=== PATIENT | female | born 1960 | race Two or more races ===

== ENCOUNTER 2024-10-24 13:08 | Outpatient (RCR) | payer BC, MEDICAID, SELFPAY ==
--- NOTE | 2024-10-24 14:39 | CTCCONSULT_ITS ---
Well so glad I have to because she just cannot already okay [facility] [address] [place], [place] [address] Consultation Note Date: 10/24/2024 MR#: [id number] Name: GUILLERMO QUEVEDO : 1960 Dx: C50.412 Malignant neoplasm of upper-outer quadrant of left female breast Attending physician. T[facility] Referring physician. Jossue Baker MD Reason for consultation. Patient with left breast CA status post left modified radical mastectomy re ferred for adjuvant therapy at the cancer treatment center. History of Present Illness: Patient is a 64-year-old lady who felt that there was a inverted left nipple and palpable lump in left breast area of for several years around 12 o'clock position. The mass measured 2.8 x 2.0 x 2.7 cm on ultrasound 04/06/2024. Biopsy performed 06/26/2024 revealed in filtrating carcinoma ER 95% positive WI 5% positive Ki-67 25% HER2/robel negative. Due to the central location and the small breast along with the size of the tumor modified radical mastectomy was perfor med by Dr. Baker on 09/28/2024. Final path revealed 3.1 cm invasive ductal carcinoma with lobular fe atures tumor invading the nipple dermis without involvement of the epidermis or skin ulcerations alhaji ins negative. There is metastatic carcinoma involving 5/10 lymph nodes micrometastatic carcinoma in one of the positive lymph nodes with largest of the metastatic deposit 1.9 cm. Focal extranodal exte nsion identified. [id number]. Patient now referred for adjuvant therapy. Past Medical History: Diabetes mellitus high blood pressure Meds. Advil Allergies none Social History: Dutch-speaking 4 pregnancies 2 births Review of Systems: Denies headache has some pain at the surgery site Physical Exam: General: Adequate nourished appearing Dutch-speaking no acute distress HEENT: Atraumatic no cephalic extraocular is intact no oral lesion no cervical or supraclavicular kenia nopathy CV: Left chest wall healing well. Right breast without any masses axillary scar healing well. Mild edema left upper extremity ABD: Soft no organomegaly or tenderness EXT: No signs of clubbing or edema. Assessment: Patient with stage IIIa [id number] left breast CA status post modified radical mastectomy pe rformed by Dr. Baker 09/28/2024. Plan:1. PET for staging due to advanced stage breast cancer. 2. Port and MUGA to facilitate chemo. Dr. Bush to see patient soon. 3. Patient told the eventual need for radiation therapy following chemo due to the multiple (5 ) nod es involved with the right breast cancer of 10 removed. Chest wall and regional node sites including internal mammary will be treated at appropriate time. 4. Thank you very much for allowing us to evaluate and manage this patient. Cc: MD Brock Lopez PA [facility] Electronically signed by: Benjy Ponce MD, DABR 10/24/2024 2:37 PM
== END 2024-11-06 23:59 | disposition home or self-care (01) ==
LOC: SCTC 13:08
PROVIDERS: Referring Provider Physician Assistant; Visit Provider Radiology Therapeutic Radiology
DX: C50.812 Malignant neoplasm of overlapping sites of left female breast (principal); C77.3 Secondary and unspecified malignant neoplasm of axilla and upper limb lymph nodes; Z17.0 Estrogen receptor positive status [ER+]; Z17.21 Progesterone receptor positive status; Z17.32 Human epidermal growth factor receptor 2 negative status; Z90.12 Acquired absence of left breast and nipple
CPT/HCPCS: 99213; G0463

== ENCOUNTER 2024-12-28 10:19 | Outpatient (RCR) | payer BC, MEDICAID, SELFPAY ==
--- NOTE | 2024-12-10 12:56 | CTCCONSULT_ITS ---
Patient: GUILLERMO QUEVEDO : 1960 MR#: [id number] Page 2 of 2 CONSULTATION NOTE DATE OF CONSULTATION: 12/10/2024 NAME: GUILLERMO QUEVEDO ACCOUNT: [id number] : 1960 AGE: 64 REFERRING PHYSICIAN: Titus Bush MD PRIMARY PHYSICIAN: Titus Bush MD laborer cook house was used. All communication was done with the help of goat driver on the goat driver machine in the clinic room . REASON FOR VISIT: new patient ONCOLOGY HISTORY: DIAGNOSIS: Malignant neoplasm of upper-outer quadrant of left female breast [ICD10] C50.412 DATE OF DIAGNOSIS: 06/26/2024 STAGE/TNM: Stage III T2 N2a MX TREATMENT HISTORY: Care?Plan Start?Date Cycle Day Intent HISTORY OF PRESENT ILLNESS: 64-year-old female with a new diagnosis of breast cancer. Patient has hypertension diabetes. Patient denies any complaints. Patient is here to establish care. Patient already had her mastectomy done in September. OTHER MEDICAL HISTORY/CONDITIONS: Infiltrating ductal carcinoma left breast - dx 06/26/24 HTN Diabetes PC placement - mid November 2024 Left modified radical mastectomy with lymph node dissection - 09/28/24 x 2 - 1996; 2004 FAMILY HISTORY: Patient?denies?family?cancer?history. 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 Tobacco?Use:?Denies ETOH?Use:?Denies Drug?Note:?Denies Social?History?Note:?Lives?with?dtr [employer] HISTORY: Menarche?-?Age:?13 Menopause:?51 Hormone?Use:?Deneis :?4 Live?Births:?2 Age?1st?:?36 Gynecological?Note:?2?Abortions MEDICATIONS: 1. Advil - As directed 2. Januvia - 100 mg 1 tab Daily 3. Jardiance - 25 mg 1 tab Daily 4. lisinopril - 5 mg 1 tab Daily 5. metFORMIN - 1,000 mg 1 tab Twice a Day Medications Last Reconciled by Marguerite Barclay RN on 12/10/2024 ALLERGIES: No Known Allergies REVIEW OF SYSTEMS: A complete 14-point review of systems was performed and is negative except as noted in interval history. PHYSICAL EXAMINATION: VITAL SIGNS: Temperature?99.1, B/P?135/78, Height?60.5?inches, Oxygen?Saturation?96% Weight?152?lbs PAIN: 2 - Mild pain ECOG Performance Status: 0 - Asymptomatic and fully active GENERAL APPEARANCE: Appears well, in no apparent distress, appropriately interactive. HEENT: Normocephalic, no temporal wasting, normal conjunctiva, no scleral icterus, normal hearing, lips without lesions, neck normal range of motion. CARDIOVASCULAR: Not assessed. PULMONARY: Normal respiratory effort, no respiratory distress or use of accessory muscles, speaking in full sentences, no tachypnea. EXTREMITIES: No pedal edema or cyanosis. SKIN: Normal skin appearance. NEUROLOGIC: Alert and oriented x4. PSHYCHIATRIC: Appropriate affect, mood normal, behavior normal, intact thought and speech. LABORATORY DATA: I have personally reviewed and interpreted each of Ms. Quevedo?s relevant lab tests, abnormal findings are below: Date ASSESSMENT/PLAN: Stage III left breast cancer s/p mastectomy Patient have advanced breast cancer. Port catheter already placed Patient will need chemotherapy Consult regarding chemotherapy with dose dense AC and paclitaxel given high risk of recurrence Patient's echocardiogram is approved but pending scheduling Will start chemotherapy Discussed side effects of chemotherapy and including the risk of heart failure from Adriamycin Advised to do daily walk for 20 to 30 minutes to build her endurance Follow-up with the primary care for or proper control of blood pressure and heart rate CBC CMP and echo RETURN TO CLINIC: 3 weeks BILLING AND COMPLIANCE: I reviewed external records from providers outside my specialty as summarized above. I spent a total of 50 minutes on this patient?s care on the day of their visit excluding time spent related to any billed procedures. This time includes time spent with the patient as well as time spent documenting in the medical record, reviewing patients records and tests, obtaining history, placing orders, communicating with other healthcare professionals, counseling the patient, family or caregiver, and/or care coordination for the diagnoses above. Electronically Signed by: Titus Bush MD T: 12:54 PM CC: PCP: Titus Bush Referring: Titus Bush This document was completed utilizing speech recognition software. Grammatical errors, random word insertions, pronoun errors, and incomplete sentences are an occasional consequence of this system due to software limitations, ambient noise, and hardware issues. Any formal questions or concerns about the content, text or information contained within the body of this dictation should be directly addressed to the provider for clarification.
[2024-12-26 13:45] LABS: Basophils # (Auto) 0.1 Thou/mm3 (0.0-0.2); Basophils % (Auto) 1 % (0-2.5); Eosinophils # (Auto) 0.3 Thou/mm3 (0.0-0.5); Eosinophils % (Auto) 4 % (0-10); Hematocrit 41.8 % (36.0-46.0); Hemoglobin 14.8 g/dL (12.0-16.0); Immature Granulocytes % (Auto) 1 % (0-0); Immature Granulocytes Auto 0.04 Thou/mm3 (0.00-0.00); Lymphocytes # (Auto) 2.4 Thou/mm3 (1.0-4.8); Lymphocytes % (Auto) 29 % (10-50); Mean Corpuscular HGB Conc 35.4 g/dl (31.0-37.0); Mean Corpuscular Hemoglobin 30.1 pg (25.0-35.0); Mean Corpuscular Volume 85 fL (80-100); Monocytes # (Auto) 0.7 Thou/mm3 (0.0-0.8); Monocytes % (Auto) 8 % (0-12); Neutrophils # (Auto) 4.7 Thou/mm3 (1.8-7.7); Neutrophils % (Auto) 57 % (37-80); Nucleated Red Blood Cell % 0 /100 WBC (0); Platelet Count 291 Thou/mm3 (140-440); RDW Standard Deviation 40.4 fL (36.4-46.3); Red Blood Count 4.92 Miln/mm3 (4.00-5.20); White Blood Count 8.2 Thou/mm3 (3.6-11.0)
[2024-12-26 13:59] LABS: Alanine Aminotransferase 33 U/L (10-49); Albumin, Serum 4.3 gm/dL (3.4-4.8); Albumin/Globulin Ratio 1.3 (1.2-2.2); Alkaline Phosphatase 78 U/L (46-116); Anion Gap 9 (7-16); Aspartate Amino Transferase 24 U/L (0-34); BUN/Creatinine Ratio 16 Ratio (12-20); Bilirubin,Total 0.5 mg/dL (0.3-1.2); Blood Urea Nitrogen 11 mg/dL (9-23); Calcium 9.4 mg/dL (8.3-10.6); Calcium (Corrected) 9.4 mg/dL (8.5-10.1); Carbon Dioxide 27.3 mMol/L (20.0-31.0); Chloride 100 mMol/L (98-107); Creatinine (Component) 0.7 mg/dL (0.6-1.3); Globulin 3.2 gm/dL (2.3-3.5); Glucose 218 mg/dL (74-106); Osmolality,Calculated 278 (275-295); Potassium 4.2 mMol/L (3.4-5.1); Sodium 136 mMol/L (136-145); Total Protein 7.5 gm/dL (5.7-8.2); eGFR > 60 See Note
== END 2025-01-04 23:59 | disposition home or self-care (01) ==
LOC: SCTC 10:19
PROVIDERS: PCP Family Medicine; Referring Provider Internal Medicine Hematology & Oncology; Visit Provider Internal Medicine Hematology & Oncology
DX: Z51.11 Encounter for antineoplastic chemotherapy (principal); C50.812 Malignant neoplasm of overlapping sites of left female breast; Z17.0 Estrogen receptor positive status [ER+]; Z17.21 Progesterone receptor positive status; Z17.32 Human epidermal growth factor receptor 2 negative status; Z90.12 Acquired absence of left breast and nipple; I10 Essential (primary) hypertension; E11.9 Type 2 diabetes mellitus without complications
CPT/HCPCS: 36591; 80053; 85025; 96367; 96368; 96372; 96411; 96413; 99213; 99424; 99425; A4216; J1100; J1453; J1642; J2405; J2506; J7040; J7050; J9000; J9075; G0463

== ENCOUNTER → 2025-01-01 | Outpatient (CLI) | payer BC, MEDICARE, MEDICAID, SELFPAY ==
--- NOTE | 2025-01-01 09:30 | XR_ITS ---
Examination: CT chest with intravenous contrast CT abdomen with intravenous contrast 2-D coronal and sagittal reconstructions Time of exam: January 01, 2025 at 0930 hrs. Indications: Diagnosis malignant neoplasm upper outer quadrant left female breast September 2024, restaging CTDI: vol (mGy) : 6.57 DLP: (mGycm): 331 Technique: Multiple axial images of the chest, abdomen and pelvis with intravenous contrast, 3.0 mm slice thickness. Images obtained post intravenous injection Isovue 370 60 cc. 2-D sagittal and coronal reconstructions. Low dose protocols were performed. One or more of the following dose reduction techniques were used; automated exposure control, adjustment of the mA and/or KV according to patient size, use of iterative reconstruction technique. Findings: No thoracic aortic aneurysm dilatation No pulmonary artery emboli in the stone CTA study No paratracheal tracheobronchial or bronchopulmonary adenopathy 5 mm pulmonary nodule right upper lobe image 117 6 mm pulmonary nodule lingular segment image 190 No lobar pneumonia or pulmonary edema Left breast surgical clips skin thickening, left axillary surgical clips No pathologic axillary lymphadenopathy No visualized liver or splenic lesion No gallstones No pancreatic or adrenal mass Aorta normal size No hydronephrosis No abdominal lymphadenopathy Impression: Noncalcified pulmonary nodules as above, with this study as baseline recommend 6 month follow-up CT chest without contrast
== END | disposition home or self-care (01) ==
LOC: CCTX 08:45
PROVIDERS: PCP Family Medicine; Referring Provider Radiology Therapeutic Radiology; Visit Provider Radiology Therapeutic Radiology
DX: R91.8 Other nonspecific abnormal finding of lung field (principal); C50.412 Malignant neoplasm of upper-outer quadrant of left female breast
CPT/HCPCS: 71260; 74160; A4649; Q9967

== ENCOUNTER 2025-01-25 08:38 | Outpatient (RCR) | payer BC, MEDICARE, MEDICAID, SELFPAY ==
[2025-01-09 12:21] LABS: Basophils # (Auto) 0.2 Thou/mm3 (0.0-0.2); Basophils % (Auto) 2 % (0-2.5); Eosinophils # (Auto) 0.2 Thou/mm3 (0.0-0.5); Eosinophils % (Auto) 1 % (0-10); Hematocrit 40.7 % (36.0-46.0); Immature Granulocytes % (Auto) 11 % (0-0); Immature Granulocytes Auto 1.24 Thou/mm3 (0.00-0.00); Lymphocytes # (Auto) 2.5 Thou/mm3 (1.0-4.8); Lymphocytes % (Auto) 21 % (10-50); Mean Corpuscular HGB Conc 34.4 g/dl (31.0-37.0); Mean Corpuscular Hemoglobin 29.6 pg (25.0-35.0); Mean Corpuscular Volume 86 fL (80-100); Monocytes # (Auto) 1.2 Thou/mm3 (0.0-0.8); Monocytes % (Auto) 10 % (0-12); Neutrophils # (Auto) 6.4 Thou/mm3 (1.8-7.7); Neutrophils % (Auto) 55 % (37-80); Nucleated Red Blood Cell % 0 /100 WBC (0); Platelet Count 273 Thou/mm3 (140-440); RDW Standard Deviation 41.1 fL (36.4-46.3); Red Blood Count 4.73 Miln/mm3 (4.00-5.20); White Blood Count 11.6 Thou/mm3 (3.6-11.0)
[2025-01-09 13:10] LABS: Alanine Aminotransferase 23 U/L (10-49); Albumin, Serum 4.2 gm/dL (3.4-4.8); Albumin/Globulin Ratio 1.4 (1.2-2.2); Alkaline Phosphatase 99 U/L (46-116); Anion Gap 9 (7-16); Aspartate Amino Transferase 15 U/L (0-34); BUN/Creatinine Ratio 11 Ratio (12-20); Bilirubin,Total 0.2 mg/dL (0.3-1.2); Blood Urea Nitrogen 8 mg/dL (9-23); Calcium 9.5 mg/dL (8.3-10.6); Calcium (Corrected) 9.5 mg/dL (8.5-10.1); Carbon Dioxide 26.1 mMol/L (20.0-31.0); Chloride 101 mMol/L (98-107); Creatinine (Component) 0.7 mg/dL (0.6-1.3); Glucose 289 mg/dL (74-106); Osmolality,Calculated 281 (275-295); Sodium 136 mMol/L (136-145); Total Protein 7.2 gm/dL (5.7-8.2); eGFR > 60 See Note
[2025-01-23 08:43] LABS: Basophils # (Auto) 0.1 Thou/mm3 (0.0-0.2); Basophils % (Auto) 1 % (0-2.5); Eosinophils # (Auto) 0.1 Thou/mm3 (0.0-0.5); Eosinophils % (Auto) 1 % (0-10); Hematocrit 39.3 % (36.0-46.0); Hemoglobin 13.7 g/dL (12.0-16.0); Immature Granulocytes % (Auto) 19 % (0-0); Immature Granulocytes Auto 3.11 Thou/mm3 (0.00-0.00); Lymphocytes # (Auto) 2.5 Thou/mm3 (1.0-4.8); Lymphocytes % (Auto) 16 % (10-50); Mean Corpuscular HGB Conc 34.9 g/dl (31.0-37.0); Mean Corpuscular Hemoglobin 30.4 pg (25.0-35.0); Mean Corpuscular Volume 87 fL (80-100); Monocytes # (Auto) 1.4 Thou/mm3 (0.0-0.8); Monocytes % (Auto) 9 % (0-12); Neutrophils % (Auto) 55 % (37-80); Nucleated Red Blood Cell # 0.03 Thou/mm3 (0.00-0.00); Nucleated Red Blood Cell % 0 /100 WBC (0); Platelet Count 287 Thou/mm3 (140-440); RDW Standard Deviation 43.8 fL (36.4-46.3); Red Blood Count 4.51 Miln/mm3 (4.00-5.20); White Blood Count 16.3 Thou/mm3 (3.6-11.0)
[2025-01-23 09:03] LABS: Alanine Aminotransferase 27 U/L (10-49); Albumin, Serum 4.3 gm/dL (3.4-4.8); Albumin/Globulin Ratio 1.7 (1.2-2.2); Alkaline Phosphatase 116 U/L (46-116); Anion Gap 11 (7-16); Aspartate Amino Transferase 11 U/L (0-34); BUN/Creatinine Ratio 13 Ratio (12-20); Bilirubin,Total 0.3 mg/dL (0.3-1.2); Blood Urea Nitrogen 9 mg/dL (9-23); Calcium 9.3 mg/dL (8.3-10.6); Calcium (Corrected) 9.3 mg/dL (8.5-10.1); Carbon Dioxide 26.4 mMol/L (20.0-31.0); Chloride 100 mMol/L (98-107); Creatinine (Component) 0.7 mg/dL (0.6-1.3); Globulin 2.6 gm/dL (2.3-3.5); Glucose 263 mg/dL (74-106); Osmolality,Calculated 281 (275-295); Potassium 3.7 mMol/L (3.4-5.1); Sodium 137 mMol/L (136-145); Total Protein 6.9 gm/dL (5.7-8.2); eGFR > 60 See Note
[2025-01-23 11:00] LABS: Path Review Blood Smear Sent to Pathologist
== END 2025-02-04 23:59 | disposition home or self-care (01) ==
LOC: SCTC 08:38
PROVIDERS: PCP Family Medicine; Referring Provider Family Medicine; Visit Provider Internal Medicine Hematology & Oncology
DX: Z51.11 Encounter for antineoplastic chemotherapy (principal); C50.812 Malignant neoplasm of overlapping sites of left female breast; Z17.0 Estrogen receptor positive status [ER+]; Z17.21 Progesterone receptor positive status; Z17.32 Human epidermal growth factor receptor 2 negative status; Z90.12 Acquired absence of left breast and nipple
CPT/HCPCS: 36591; 80053; 85025; 96367; 96372; 96411; 96413; A4216; J1100; J1453; J1642; J2405; J2506; J7040; J7050; J9000; J9075

== ENCOUNTER 2025-04-04 07:50 | Outpatient (RCR) | payer BC, MEDICARE, MEDICAID, SELFPAY ==
[2025-03-06 08:55] LABS: Basophils # (Auto) 0.1 Thou/mm3 (0.0-0.2); Basophils % (Auto) 2 % (0-2.5); Eosinophils # (Auto) 0.2 Thou/mm3 (0.0-0.5); Eosinophils % (Auto) 3 % (0-10); Hematocrit 36.3 % (36.0-46.0); Hemoglobin 12.8 g/dL (12.0-16.0); Immature Granulocytes % (Auto) 2 % (0-0); Immature Granulocytes Auto 0.14 Thou/mm3 (0.00-0.00); Lymphocytes % (Auto) 17 % (10-50); Mean Corpuscular HGB Conc 35.3 g/dl (31.0-37.0); Mean Corpuscular Hemoglobin 32.4 pg (25.0-35.0); Mean Corpuscular Volume 92 fL (80-100); Monocytes # (Auto) 0.7 Thou/mm3 (0.0-0.8); Monocytes % (Auto) 12 % (0-12); Neutrophils # (Auto) 3.8 Thou/mm3 (1.8-7.7); Neutrophils % (Auto) 65 % (37-80); Nucleated Red Blood Cell % 0 /100 WBC (0); Platelet Count 359 Thou/mm3 (140-440); RDW Standard Deviation 55.3 fL (36.4-46.3); Red Blood Count 3.95 Miln/mm3 (4.00-5.20); White Blood Count 5.9 Thou/mm3 (3.6-11.0)
[2025-03-06 09:18] LABS: Alanine Aminotransferase 21 U/L (10-49); Albumin, Serum 4.1 gm/dL (3.4-4.8); Albumin/Globulin Ratio 1.6 (1.2-2.2); Alkaline Phosphatase 79 U/L (46-116); Anion Gap 8 (7-16); Aspartate Amino Transferase 15 U/L (0-34); BUN/Creatinine Ratio 22 Ratio (12-20); Bilirubin,Total 0.4 mg/dL (0.3-1.2); Blood Urea Nitrogen 13 mg/dL (9-23); Calcium 9.1 mg/dL (8.3-10.6); Calcium (Corrected) 9.1 mg/dL (8.5-10.1); Carbon Dioxide 26.2 mMol/L (20.0-31.0); Chloride 105 mMol/L (98-107); Creatinine (Component) 0.6 mg/dL (0.6-1.3); Globulin 2.5 gm/dL (2.3-3.5); Glucose 252 mg/dL (74-106); Osmolality,Calculated 286 (275-295); Potassium 3.8 mMol/L (3.4-5.1); Sodium 139 mMol/L (136-145); Total Protein 6.6 gm/dL (5.7-8.2); eGFR > 60 See Note
[2025-03-06 09:31] LABS: CA 15-3 5.9 U/mL (<32.4)
[2025-03-13 09:19] LABS: Basophils # (Auto) 0.1 Thou/mm3 (0.0-0.2); Basophils % (Auto) 1 % (0-2.5); Eosinophils # (Auto) 0.3 Thou/mm3 (0.0-0.5); Eosinophils % (Auto) 7 % (0-10); Hemoglobin 12.9 g/dL (12.0-16.0); Immature Granulocytes % (Auto) 2 % (0-0); Lymphocytes # (Auto) 1.1 Thou/mm3 (1.0-4.8); Lymphocytes % (Auto) 21 % (10-50); Mean Corpuscular HGB Conc 34.9 g/dl (31.0-37.0); Mean Corpuscular Volume 92 fL (80-100); Monocytes # (Auto) 0.6 Thou/mm3 (0.0-0.8); Monocytes % (Auto) 12 % (0-12); Neutrophils % (Auto) 58 % (37-80); Nucleated Red Blood Cell % 0 /100 WBC (0); Platelet Count 215 Thou/mm3 (140-440); RDW Standard Deviation 53.4 fL (36.4-46.3); Red Blood Count 4.03 Miln/mm3 (4.00-5.20); White Blood Count 5.2 Thou/mm3 (3.6-11.0)
[2025-03-13 09:40] LABS: Alanine Aminotransferase 27 U/L (10-49); Albumin, Serum 4.3 gm/dL (3.4-4.8); Albumin/Globulin Ratio 1.7 (1.2-2.2); Alkaline Phosphatase 80 U/L (46-116); Anion Gap 8 (7-16); Aspartate Amino Transferase 19 U/L (0-34); BUN/Creatinine Ratio 17 Ratio (12-20); Bilirubin,Total 0.5 mg/dL (0.3-1.2); Blood Urea Nitrogen 10 mg/dL (9-23); Calcium 9.1 mg/dL (8.3-10.6); Calcium (Corrected) 9.1 mg/dL (8.5-10.1); Carbon Dioxide 26.1 mMol/L (20.0-31.0); Chloride 103 mMol/L (98-107); Creatinine (Component) 0.6 mg/dL (0.6-1.3); Globulin 2.5 gm/dL (2.3-3.5); Glucose 232 mg/dL (74-106); Osmolality,Calculated 279 (275-295); Potassium 4.1 mMol/L (3.4-5.1); Sodium 137 mMol/L (136-145); Total Protein 6.8 gm/dL (5.7-8.2); eGFR > 60 See Note
[2025-03-20 09:27] LABS: Basophils # (Auto) 0.1 Thou/mm3 (0.0-0.2); Basophils % (Auto) 1 % (0-2.5); Eosinophils # (Auto) 0.3 Thou/mm3 (0.0-0.5); Eosinophils % (Auto) 5 % (0-10); Hematocrit 35.3 % (36.0-46.0); Hemoglobin 12.6 g/dL (12.0-16.0); Immature Granulocytes % (Auto) 1 % (0-0); Immature Granulocytes Auto 0.06 Thou/mm3 (0.00-0.00); Lymphocytes # (Auto) 1.1 Thou/mm3 (1.0-4.8); Lymphocytes % (Auto) 18 % (10-50); Mean Corpuscular HGB Conc 35.7 g/dl (31.0-37.0); Mean Corpuscular Hemoglobin 32.4 pg (25.0-35.0); Mean Corpuscular Volume 91 fL (80-100); Monocytes # (Auto) 0.6 Thou/mm3 (0.0-0.8); Monocytes % (Auto) 9 % (0-12); Neutrophils # (Auto) 4.2 Thou/mm3 (1.8-7.7); Neutrophils % (Auto) 67 % (37-80); Nucleated Red Blood Cell % 0 /100 WBC (0); Platelet Count 222 Thou/mm3 (140-440); RDW Standard Deviation 50.2 fL (36.4-46.3); Red Blood Count 3.89 Miln/mm3 (4.00-5.20); White Blood Count 6.3 Thou/mm3 (3.6-11.0)
[2025-03-20 09:41] LABS: Alanine Aminotransferase 25 U/L (10-49); Albumin, Serum 4.1 gm/dL (3.4-4.8); Albumin/Globulin Ratio 1.6 (1.2-2.2); Alkaline Phosphatase 80 U/L (46-116); Anion Gap 10 (7-16); Aspartate Amino Transferase 18 U/L (0-34); BUN/Creatinine Ratio 15 Ratio (12-20); Bilirubin,Total 0.5 mg/dL (0.3-1.2); Blood Urea Nitrogen 9 mg/dL (9-23); Calcium 8.5 mg/dL (8.3-10.6); Calcium (Corrected) 8.5 mg/dL (8.5-10.1); Carbon Dioxide 24.9 mMol/L (20.0-31.0); Chloride 104 mMol/L (98-107); Creatinine (Component) 0.6 mg/dL (0.6-1.3); Globulin 2.5 gm/dL (2.3-3.5); Glucose 255 mg/dL (74-106); Osmolality,Calculated 285 (275-295); Potassium 3.5 mMol/L (3.4-5.1); Sodium 139 mMol/L (136-145); Total Protein 6.6 gm/dL (5.7-8.2); eGFR > 60 See Note
[2025-03-20 09:54] LABS: CA 15-3 4.9 U/mL (<32.4)
[2025-03-27 09:41] LABS: Basophils % (Auto) 1 % (0-2.5); Eosinophils # (Auto) 0.3 Thou/mm3 (0.0-0.5); Eosinophils % (Auto) 6 % (0-10); Hematocrit 38.3 % (36.0-46.0); Hemoglobin 13.4 g/dL (12.0-16.0); Immature Granulocytes % (Auto) 1 % (0-0); Immature Granulocytes Auto 0.06 Thou/mm3 (0.00-0.00); Lymphocytes # (Auto) 1.1 Thou/mm3 (1.0-4.8); Lymphocytes % (Auto) 20 % (10-50); Mean Corpuscular Hemoglobin 32.5 pg (25.0-35.0); Mean Corpuscular Volume 93 fL (80-100); Monocytes # (Auto) 0.5 Thou/mm3 (0.0-0.8); Monocytes % (Auto) 9 % (0-12); Neutrophils # (Auto) 3.4 Thou/mm3 (1.8-7.7); Neutrophils % (Auto) 63 % (37-80); Nucleated Red Blood Cell % 0 /100 WBC (0); Platelet Count 280 Thou/mm3 (140-440); RDW Standard Deviation 51.8 fL (36.4-46.3); Red Blood Count 4.12 Miln/mm3 (4.00-5.20); White Blood Count 5.4 Thou/mm3 (3.6-11.0)
[2025-03-27 10:03] LABS: Alanine Aminotransferase 23 U/L (10-49); Albumin, Serum 4.2 gm/dL (3.4-4.8); Albumin/Globulin Ratio 1.6 (1.2-2.2); Alkaline Phosphatase 84 U/L (46-116); Anion Gap 13 (7-16); Aspartate Amino Transferase 18 U/L (0-34); BUN/Creatinine Ratio 13 Ratio (12-20); Bilirubin,Total 0.4 mg/dL (0.3-1.2); Blood Urea Nitrogen 10 mg/dL (9-23); Calcium 9.1 mg/dL (8.3-10.6); Calcium (Corrected) 9.1 mg/dL (8.5-10.1); Carbon Dioxide 24.7 mMol/L (20.0-31.0); Chloride 102 mMol/L (98-107); Creatinine (Component) 0.8 mg/dL (0.6-1.3); Globulin 2.6 gm/dL (2.3-3.5); Glucose 309 mg/dL (74-106); Osmolality,Calculated 290 (275-295); Potassium 3.8 mMol/L (3.4-5.1); Sodium 140 mMol/L (136-145); Total Protein 6.8 gm/dL (5.7-8.2); eGFR > 60 See Note
[2025-03-27 10:18] LABS: CA 15-3 3.2 U/mL (<32.4)
--- NOTE | 2025-03-28 14:17 | CTCFLWUP_ITS ---
Patient: GUILLERMO QUEVEDO : 1960 Page 2 of 2 FOLLOW UP NOTE DATE OF SERVICE: 03/25/2025 NAME: GUILLERMO QUEVEDO ACCOUNT: [id number] : 1960 AGE: 64 INTERVAL HISTORY: Subjective: Chief Complaint Follow-up visit for ongoing cancer treatment History of Present Illness Chiara Murphy, a female patient with a history of cancer and diabetes, presents for follow-up of her ongoing cancer treatment. She is currently undergoing chemotherapy, with 4 or 5 treatments remaining until May 09. The patient reports no new symptoms or complications since her last visit. She has been using cold mittens and socks during her chemotherapy treatments as recommended. Notably, she denies experiencing any numbness or tingling in her hands, which is a positive sign in terms of potential chemotherapy-related neuropathy. The patient's adherence to her treatment regimen appears to be good, as she continues to use the cold mittens and socks during chemotherapy sessions. Her overall health status seems to be stable, with no reported decline in functioning or new health concerns. Medications and Supplements - Taxol - Ongoing chemotherapy treatment. Patient has 4 or 5 treatments left, continuing until May 09. Review of Systems Neurological: Negative for numbness and tingling in hands. Endocrine: Positive for elevated blood glucose. Objective: Laboratory, Imaging, and Diagnostic Test Results - Natura test: Negative (86-87% chance of being cancer-free) - Blood work: - Blood glucose: Mildly elevated ONCOLOGY HISTORY: DIAGNOSIS: Malignant neoplasm of upper-outer quadrant of left female breast [ICD10] C50.412 DATE OF DIAGNOSIS: 06/26/2024 STAGE/TNM: Stage III T2 N2a MX ER/MO positive HER2 negative TREATMENT HISTORY: Care?Plan Start?Date Cycle Day Intent AC?4?cy?DD?Taxol?wkly?12?wks 12/17/2024 2 7 Curative?(adjuvant) HISTORY OF PRESENT ILLNESS: 64-year-old female with a new diagnosis of breast cancer. Patient has hypertension diabetes. Patient denies any complaints. Patient is here to establish care. Patient already had her mastectomy done in September. OTHER MEDICAL HISTORY/CONDITIONS: Infiltrating ductal carcinoma left breast - dx 06/26/24 HTN Diabetes PC placement - mid November 2024 Left modified radical mastectomy with lymph node dissection - 09/28/24 x 2 - 1996; 2004 FAMILY HISTORY: Patient?denies?family?cancer?history. 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 Tobacco?Use:?Denies ETOH?Use:?Denies Drug?Note:?Denies Social?History?Note:?Lives?with?dtr [employer] HISTORY: Menarche?-?Age:?13 Menopause:?51 Hormone?Use:?Deneis :?4 Live?Births:?2 Age?1st?:?36 Gynecological?Note:?2?Abortions MEDICATIONS: 1. Advil - As directed 2. azithromycin - 250 mg 1 tab Daily 3. Compazine - 5 mg 5 mg Daily 4. Januvia - 100 mg 1 tab Daily 5. Jardiance - 25 mg 1 tab Daily 6. lisinopril - 5 mg 1 tab Daily 7. metFORMIN - 1,000 mg 1 tab Twice a Day 8. ondansetron HCl - 8 mg 8 mg Daily Medications Last Reconciled by Iliana Hanson MA on 03/25/2025 ALLERGIES: No Known Allergies REVIEW OF SYSTEMS: A complete 14-point review of systems was performed and is negative except as noted in interval history. PHYSICAL EXAMINATION: VITAL SIGNS: Temperature?98.3, B/P?129/76, Oxygen?Saturation?96% Weight?146?lbs (Change?since?03/21/25:?-1.2?lbs) PAIN: 0 - No pain ECOG Performance Status: 0 - Asymptomatic and fully active GENERAL APPEARANCE: Appears well, in no apparent distress, appropriately interactive. HEENT: Normocephalic, no temporal wasting, normal conjunctiva, no scleral icterus, normal hearing, lips without lesions, neck normal range of motion. CARDIOVASCULAR: Not assessed. PULMONARY: Normal respiratory effort, no respiratory distress or use of accessory muscles, speaking in full sentences, no tachypnea. EXTREMITIES: No pedal edema or cyanosis. SKIN: Normal skin appearance. NEUROLOGIC: Alert and oriented x4. PSHYCHIATRIC: Appropriate affect, mood normal, behavior normal, intact thought and speech. LABORATORY DATA: I have personally reviewed and interpreted each of the patient?s relevant lab tests, abnormal findings are below: Date 03/13/25 03/20/25 ??WHITE?BLOOD?COUNT?(Thou/mm3) 5.2 6.3 ??RED?BLOOD?COUNT?(Miln/mm3) 4.03 3.89?L ??HEMOGLOBIN?(gm/dl) 12.9 12.6 ??HEMATOCRIT?(%) 37.0 35.3?L ??PLATELET?COUNT?(Thou/mm3) 215 222 ??NEUTROPHILS?%,?AUTO?(%) 58 67 ??LYMPH?%,?AUTO?(%) 21 18 ??NEUTROPHILS,?AUTO?(Thou/mm3) 3.0 4.2 ??GLUCOSE,RANDOM?(mg/dL) 232?H 255?H ??BLOOD?UREA?NITROGEN?(mg/dL) 10 9 ??CREATININE?(mg/dL) 0.60 0.60 ??SODIUM?(mmol/L) 137 139 ??POTASSIUM?(mmol/L) 4.1 3.5 ??CHLORIDE?(mmol/L) 103 104 ??CrCl?(CandG)?(ml/min) 84.22 83.39 ??AST/SGOT?(Unit/L) 19 18 ??ALT/SGPT?(Unit/L) 27 25 ??ALKALINE?PHOSPHATASE?(Unit/L) 80 80 ??BILIRUBIN,?TOTAL?(mg/dL) 0.5 0.5 ??PROTEIN?TOTAL?(gm/dl) 6.8 6.6 ??ALBUMIN,?SERUM?(gm/dl) 4.3 4.1 ??GLOBULIN?(gm/dl) 2.5 2.5 ??ALBUMIN/GLOBULIN?RATIO 1.7 1.6 ??CALCIUM,?SERUM?(mg/dL) 9.1 8.5 ??CALCIUM?SERUM?(CORRECTED)?(mg/dL) 9.1 8.5 ASSESSMENT/PLAN: Stage III left breast cancer s/p mastectomy Patient have advanced breast cancer. Patient started chemotherapy after chemo port was placed Finished Adriamycin and cyclophosphamide and did well Assessment and Plan: Chiara Murphy, female patient with breast cancer, undergoing chemotherapy treatment, presenting for follow-up visit. Breast Cancer Assessment: Patient is currently undergoing chemotherapy treatment for breast cancer. Recent Natura test was negative, indicating an 86-87% chance of being cancer-free. The patient has completed Taxol treatment but still has 4-5 chemotherapy treatments remaining, with the final treatment scheduled for May 09. Blood work is reported as looking very good, suggesting good response to treatment. Patient is using cold mittens and socks during chemotherapy to prevent neuropathy, and currently reports no numbness or tingling in the hands. Plan: - Continue remaining chemotherapy treatments until May 09 - Continue use of cold mittens and socks during chemotherapy to prevent neuropathy - Repeat Natura blood test every 3 months for cancer monitoring - Follow-up appointment in 6-8 weeks, after completion of chemotherapy treatment Diabetes Mellitus Assessment: Patient has a known history of diabetes. Recent blood work shows mildly elevated blood glucose levels, indicating suboptimal glycemic control. Plan: - Dietary modifications recommended: - Reduce intake of rice and tortillas - Spread meals over 2-3 hours, eating slowly - Monitor blood glucose levels ORDERS: Order # Description [id number] Follow Up 2 Months [id number] Comprehensive Metabolic Panel - 12 + CBC with Auto Diff [id number] CA 15-3 RETURN TO CLINIC: BILLING AND COMPLIANCE: I reviewed external records from providers outside my specialty as summarized above. I spent a total of 50 minutes on this patient?s care on the day of their visit excluding time spent related to any billed procedures. This time includes time spent with the patient as well as time spent documenting in the medical record, reviewing patients records and tests, obtaining history, placing orders, communicating with other healthcare professionals, counseling the patient, family or caregiver, and/or care coordination for the diagnoses above. Electronically Signed by: Titus Bush MD T: 1:23 PM CC: PCP: Titus Bush Referring: Titus Bush This document was completed utilizing speech recognition software. Grammatical errors, random word insertions, pronoun errors, and incomplete sentences are an occasional consequence of this system due to software limitations, ambient noise, and hardware issues. Any formal questions or concerns about the content, text or information contained within the body of this dictation should be directly addressed to the provider for clarification.
[2025-04-03 08:45] LABS: Basophils % (Auto) 1 % (0-2.5); Eosinophils # (Auto) 0.3 Thou/mm3 (0.0-0.5); Eosinophils % (Auto) 5 % (0-10); Hematocrit 37.3 % (36.0-46.0); Hemoglobin 13.4 g/dL (12.0-16.0); Immature Granulocytes % (Auto) 1 % (0-0); Immature Granulocytes Auto 0.05 Thou/mm3 (0.00-0.00); Lymphocytes # (Auto) 1.1 Thou/mm3 (1.0-4.8); Lymphocytes % (Auto) 20 % (10-50); Mean Corpuscular HGB Conc 35.9 g/dl (31.0-37.0); Mean Corpuscular Hemoglobin 32.3 pg (25.0-35.0); Mean Corpuscular Volume 90 fL (80-100); Monocytes # (Auto) 0.5 Thou/mm3 (0.0-0.8); Monocytes % (Auto) 9 % (0-12); Neutrophils # (Auto) 3.8 Thou/mm3 (1.8-7.7); Neutrophils % (Auto) 66 % (37-80); Nucleated Red Blood Cell % 0 /100 WBC (0); Platelet Count 269 Thou/mm3 (140-440); RDW Standard Deviation 46.6 fL (36.4-46.3); Red Blood Count 4.15 Miln/mm3 (4.00-5.20); White Blood Count 5.7 Thou/mm3 (3.6-11.0)
[2025-04-03 09:04] LABS: Alanine Aminotransferase 23 U/L (10-49); Albumin, Serum 4.2 gm/dL (3.4-4.8); Albumin/Globulin Ratio 1.8 (1.2-2.2); Alkaline Phosphatase 83 U/L (46-116); Anion Gap 9 (7-16); Aspartate Amino Transferase 19 U/L (0-34); BUN/Creatinine Ratio 17 Ratio (12-20); Bilirubin,Total 0.6 mg/dL (0.3-1.2); Blood Urea Nitrogen 12 mg/dL (9-23); Carbon Dioxide 25.9 mMol/L (20.0-31.0); Chloride 102 mMol/L (98-107); Creatinine (Component) 0.7 mg/dL (0.6-1.3); Globulin 2.3 gm/dL (2.3-3.5); Glucose 288 mg/dL (74-106); Osmolality,Calculated 284 (275-295); Potassium 3.8 mMol/L (3.4-5.1); Sodium 137 mMol/L (136-145); Total Protein 6.5 gm/dL (5.7-8.2); eGFR > 60 See Note
[2025-04-03 09:22] LABS: CA 15-3 2.6 U/mL (<32.4)
== END 2025-04-06 23:59 | disposition home or self-care (01) ==
LOC: SCTC 07:50
PROVIDERS: Referring Provider Internal Medicine Hematology & Oncology; Visit Provider Internal Medicine Hematology & Oncology
DX: Z51.11 Encounter for antineoplastic chemotherapy (principal); C50.412 Malignant neoplasm of upper-outer quadrant of left female breast; Z17.0 Estrogen receptor positive status [ER+]; Z17.21 Progesterone receptor positive status; Z17.32 Human epidermal growth factor receptor 2 negative status; E11.9 Type 2 diabetes mellitus without complications; Z90.12 Acquired absence of left breast and nipple
CPT/HCPCS: 36591; 80053; 85025; 86300; 96367; 96375; 96413; 99213; A4216; J1100; J1200; J1453; J1642; J2405; J3490; J7040; J7050; J9267; G0463

== ENCOUNTER → 2025-04-13 | Outpatient (CLI) | payer BC, MEDICARE, MEDICAID, SELFPAY ==
--- NOTE | 2025-04-13 10:30 | XR_ITS ---
Examination: MRI of brain without intravenous contrast. MRI brain with intravenous contrast. Date and time of exam:November 13, 2024 10:53 AM Indications: Diagnosis malignant neoplasm upper outer quadrant left female breast Technique: Multiple axial and sagittal images of the brain to been obtained. Siemens high-resolution 1.52 Darlyn short bore scanner utilized. Sagittal sections, T1 weighted images, TR 500, TE 14, are performed. Axial sections proton-density and T2-weighted images have been obtained. Inversion recovery axial images, TR 9260, TE 111, TR 2500. Diffusion weighted images, axial sections, TR 4800, TE 128, B value 1000. Axial sections, ADC map, TR 4800, TE 128. Axial and coronal images were also obtained post 13 cc gadolinium administered intravenously. Findings:: Enlargement of the sella turcica is not present. The optic chiasm and infundibular stalk are not remarkable. There is no localized enlargement of the medulla or jesse. Fourth ventricle and cerebellar tonsils appear normal in position. No subacute area of hemorrhage density is seen. Fourth ventricle is midline. Mass in the cerebellopontine angle region is not evident. 7th and 8th nerve complexes exhibit symmetry Globes are symmetrical Orbital musculature including medial lateral rectus muscles do not exhibit abnormality Increased white matter signal is not significant Effacement of the cortical sulcal markings is not identified. Mass effect upon the ventricular system is not identified. Diffusion-weighted images demonstrate no focus of restrictive diffusion Contrast images demonstrate no abnormal enhancing cerebellar or cerebral lesions Impression: Negative for acute hemorrhage mass effect or midline shift No acute infarct Negative for cerebellar or cerebral metastatic disease
== END | disposition home or self-care (01) ==
LOC: SMRI 09:50
PROVIDERS: Referring Provider Internal Medicine Hematology & Oncology; Visit Provider Internal Medicine Hematology & Oncology
DX: C50.412 Malignant neoplasm of upper-outer quadrant of left female breast (principal)
CPT/HCPCS: 70553; A9579

== ENCOUNTER 2025-05-02 08:01 | Outpatient (RCR) | payer BC, MEDICARE, MEDICAID, SELFPAY ==
[2025-04-10 15:05] LABS: Basophils # (Auto) 0.1 Thou/mm3 (0.0-0.2); Basophils % (Auto) 1 % (0-2.5); Eosinophils # (Auto) 0.3 Thou/mm3 (0.0-0.5); Eosinophils % (Auto) 4 % (0-10); Hematocrit 36.2 % (36.0-46.0); Hemoglobin 13.2 g/dL (12.0-16.0); Immature Granulocytes % (Auto) 1 % (0-0); Immature Granulocytes Auto 0.07 Thou/mm3 (0.00-0.00); Lymphocytes # (Auto) 1.4 Thou/mm3 (1.0-4.8); Lymphocytes % (Auto) 23 % (10-50); Mean Corpuscular HGB Conc 36.5 g/dl (31.0-37.0); Mean Corpuscular Hemoglobin 32.7 pg (25.0-35.0); Mean Corpuscular Volume 90 fL (80-100); Monocytes # (Auto) 0.7 Thou/mm3 (0.0-0.8); Monocytes % (Auto) 12 % (0-12); Neutrophils # (Auto) 3.4 Thou/mm3 (1.8-7.7); Neutrophils % (Auto) 58 % (37-80); Nucleated Red Blood Cell % 0 /100 WBC (0); Platelet Count 261 Thou/mm3 (140-440); RDW Standard Deviation 45.2 fL (36.4-46.3); Red Blood Count 4.04 Miln/mm3 (4.00-5.20); White Blood Count 5.8 Thou/mm3 (3.6-11.0)
[2025-04-10 15:38] LABS: Alanine Aminotransferase 27 U/L (10-49); Albumin, Serum 4.3 gm/dL (3.4-4.8); Alkaline Phosphatase 81 U/L (46-116); Anion Gap 12 (7-16); Aspartate Amino Transferase 20 U/L (0-34); BUN/Creatinine Ratio 18 Ratio (12-20); Bilirubin,Total 0.3 mg/dL (0.3-1.2); Blood Urea Nitrogen 11 mg/dL (9-23); Calcium 8.7 mg/dL (8.3-10.6); Calcium (Corrected) 8.7 mg/dL (8.5-10.1); Carbon Dioxide 25.1 mMol/L (20.0-31.0); Chloride 104 mMol/L (98-107); Creatinine (Component) 0.6 mg/dL (0.6-1.3); Globulin 2.2 gm/dL (2.3-3.5); Glucose 165 mg/dL (74-106); Osmolality,Calculated 284 (275-295); Sodium 141 mMol/L (136-145); Total Protein 6.5 gm/dL (5.7-8.2); eGFR > 60 See Note
[2025-04-10 16:03] LABS: CA 15-3 1.2 U/mL (<32.4)
[2025-04-17 16:38] LABS: Basophils # (Auto) 0.1 Thou/mm3 (0.0-0.2); Basophils % (Auto) 1 % (0-2.5); Eosinophils # (Auto) 0.3 Thou/mm3 (0.0-0.5); Eosinophils % (Auto) 4 % (0-10); Hematocrit 38.4 % (36.0-46.0); Hemoglobin 13.3 g/dL (12.0-16.0); Immature Granulocytes % (Auto) 1 % (0-0); Immature Granulocytes Auto 0.08 Thou/mm3 (0.00-0.00); Lymphocytes # (Auto) 1.4 Thou/mm3 (1.0-4.8); Lymphocytes % (Auto) 24 % (10-50); Mean Corpuscular HGB Conc 34.6 g/dl (31.0-37.0); Mean Corpuscular Hemoglobin 32.1 pg (25.0-35.0); Mean Corpuscular Volume 93 fL (80-100); Monocytes # (Auto) 0.7 Thou/mm3 (0.0-0.8); Monocytes % (Auto) 12 % (0-12); Neutrophils # (Auto) 3.3 Thou/mm3 (1.8-7.7); Neutrophils % (Auto) 57 % (37-80); Nucleated Red Blood Cell % 0 /100 WBC (0); Platelet Count 274 Thou/mm3 (140-440); RDW Standard Deviation 45.8 fL (36.4-46.3); Red Blood Count 4.14 Miln/mm3 (4.00-5.20); White Blood Count 5.8 Thou/mm3 (3.6-11.0)
[2025-04-17 16:55] LABS: Alanine Aminotransferase 26 U/L (10-49); Albumin, Serum 4.4 gm/dL (3.4-4.8); Alkaline Phosphatase 81 U/L (46-116); Anion Gap 13 (7-16); BUN/Creatinine Ratio 17 Ratio (12-20); Bilirubin,Total 0.3 mg/dL (0.3-1.2); Blood Urea Nitrogen 10 mg/dL (9-23); Calcium 9.2 mg/dL (8.3-10.6); Calcium (Corrected) 9.2 mg/dL (8.5-10.1); Carbon Dioxide 25.5 mMol/L (20.0-31.0); Chloride 106 mMol/L (98-107); Creatinine (Component) 0.6 mg/dL (0.6-1.3); Globulin 2.2 gm/dL (2.3-3.5); Glucose 132 mg/dL (74-106); Osmolality,Calculated 287 (275-295); Sodium 144 mMol/L (136-145); Total Protein 6.6 gm/dL (5.7-8.2); eGFR > 60 See Note
[2025-04-23 11:15] LABS: Basophils % (Auto) 1 % (0-2.5); Eosinophils # (Auto) 0.2 Thou/mm3 (0.0-0.5); Eosinophils % (Auto) 3 % (0-10); Hematocrit 37.9 % (36.0-46.0); Hemoglobin 13.6 g/dL (12.0-16.0); Immature Granulocytes % (Auto) 1 % (0-0); Immature Granulocytes Auto 0.04 Thou/mm3 (0.00-0.00); Lymphocytes # (Auto) 1.2 Thou/mm3 (1.0-4.8); Lymphocytes % (Auto) 23 % (10-50); Mean Corpuscular HGB Conc 35.9 g/dl (31.0-37.0); Mean Corpuscular Hemoglobin 32.1 pg (25.0-35.0); Mean Corpuscular Volume 89 fL (80-100); Monocytes # (Auto) 0.4 Thou/mm3 (0.0-0.8); Monocytes % (Auto) 8 % (0-12); Neutrophils # (Auto) 3.5 Thou/mm3 (1.8-7.7); Neutrophils % (Auto) 65 % (37-80); Nucleated Red Blood Cell % 0 /100 WBC (0); Platelet Count 276 Thou/mm3 (140-440); RDW Standard Deviation 43.3 fL (36.4-46.3); Red Blood Count 4.24 Miln/mm3 (4.00-5.20); White Blood Count 5.3 Thou/mm3 (3.6-11.0)
[2025-04-23 11:34] LABS: Alanine Aminotransferase 26 U/L (10-49); Albumin, Serum 4.3 gm/dL (3.4-4.8); Albumin/Globulin Ratio 1.9 (1.2-2.2); Alkaline Phosphatase 79 U/L (46-116); Anion Gap 10 (7-16); Aspartate Amino Transferase 18 U/L (0-34); BUN/Creatinine Ratio 13 Ratio (12-20); Bilirubin,Total 0.3 mg/dL (0.3-1.2); Blood Urea Nitrogen 9 mg/dL (9-23); Calcium 9.1 mg/dL (8.3-10.6); Calcium (Corrected) 9.1 mg/dL (8.5-10.1); Carbon Dioxide 26.7 mMol/L (20.0-31.0); Chloride 101 mMol/L (98-107); Creatinine (Component) 0.7 mg/dL (0.6-1.3); Globulin 2.3 gm/dL (2.3-3.5); Glucose 268 mg/dL (74-106); Osmolality,Calculated 283 (275-295); Potassium 4.1 mMol/L (3.4-5.1); Sodium 138 mMol/L (136-145); Total Protein 6.6 gm/dL (5.7-8.2); eGFR > 60 See Note
[2025-04-23 11:51] LABS: CA 15-3 0.5 U/mL (<32.4)
[2025-05-01 16:04] LABS: Basophils # (Auto) 0.1 Thou/mm3 (0.0-0.2); Basophils % (Auto) 1 % (0-2.5); Eosinophils # (Auto) 0.2 Thou/mm3 (0.0-0.5); Eosinophils % (Auto) 3 % (0-10); Hematocrit 36.7 % (36.0-46.0); Hemoglobin 13.4 g/dL (12.0-16.0); Immature Granulocytes % (Auto) 2 % (0-0); Immature Granulocytes Auto 0.11 Thou/mm3 (0.00-0.00); Lymphocytes # (Auto) 1.6 Thou/mm3 (1.0-4.8); Lymphocytes % (Auto) 24 % (10-50); Mean Corpuscular HGB Conc 36.5 g/dl (31.0-37.0); Mean Corpuscular Hemoglobin 32.1 pg (25.0-35.0); Mean Corpuscular Volume 88 fL (80-100); Monocytes # (Auto) 0.7 Thou/mm3 (0.0-0.8); Monocytes % (Auto) 11 % (0-12); Neutrophils % (Auto) 60 % (37-80); Nucleated Red Blood Cell % 0 /100 WBC (0); Platelet Count 264 Thou/mm3 (140-440); RDW Standard Deviation 42.4 fL (36.4-46.3); Red Blood Count 4.18 Miln/mm3 (4.00-5.20); White Blood Count 6.5 Thou/mm3 (3.6-11.0)
[2025-05-01 16:23] LABS: Alanine Aminotransferase 24 U/L (10-49); Albumin, Serum 4.2 gm/dL (3.4-4.8); Albumin/Globulin Ratio 1.9 (1.2-2.2); Alkaline Phosphatase 78 U/L (46-116); Anion Gap 9 (7-16); Aspartate Amino Transferase 20 U/L (0-34); BUN/Creatinine Ratio 14 Ratio (12-20); Bilirubin,Total 0.3 mg/dL (0.3-1.2); Blood Urea Nitrogen 11 mg/dL (9-23); Calcium 9.1 mg/dL (8.3-10.6); Calcium (Corrected) 9.1 mg/dL (8.5-10.1); Carbon Dioxide 26.9 mMol/L (20.0-31.0); Chloride 101 mMol/L (98-107); Creatinine (Component) 0.8 mg/dL (0.6-1.3); Globulin 2.2 gm/dL (2.3-3.5); Glucose 236 mg/dL (74-106); Osmolality,Calculated 281 (275-295); Sodium 137 mMol/L (136-145); Total Protein 6.4 gm/dL (5.7-8.2); eGFR > 60 See Note
[2025-05-01 16:41] LABS: CA 15-3 0.5 U/mL (<32.4)
== END 2025-05-06 23:59 | disposition home or self-care (01) ==
LOC: SCTC 08:01
PROVIDERS: Referring Provider Internal Medicine Hematology & Oncology; Visit Provider Radiology Therapeutic Radiology
DX: Z51.11 Encounter for antineoplastic chemotherapy (principal); C50.812 Malignant neoplasm of overlapping sites of left female breast; Z17.0 Estrogen receptor positive status [ER+]; Z17.21 Progesterone receptor positive status; Z17.32 Human epidermal growth factor receptor 2 negative status; Z90.12 Acquired absence of left breast and nipple
CPT/HCPCS: 36591; 77470; 80053; 85025; 86300; 96367; 96375; 96413; 99213; A4216; J1100; J1200; J1453; J1642; J2405; J3490; J7040; J7050; J9267; G0463

== ENCOUNTER 2025-06-06 08:00 | Outpatient (RCR) | payer BC, MEDICARE, MEDICAID, SELFPAY ==
[2025-05-08 16:08] LABS: Basophils # (Auto) 0.1 Thou/mm3 (0.0-0.2); Basophils % (Auto) 1 % (0-2.5); Eosinophils # (Auto) 0.3 Thou/mm3 (0.0-0.5); Eosinophils % (Auto) 5 % (0-10); Hematocrit 37.6 % (36.0-46.0); Hemoglobin 13.7 g/dL (12.0-16.0); Immature Granulocytes Auto 0.08 Thou/mm3 (0.00-0.00); Lymphocytes # (Auto) 1.6 Thou/mm3 (1.0-4.8); Lymphocytes % (Auto) 27 % (10-50); Mean Corpuscular HGB Conc 36.4 g/dl (31.0-37.0); Mean Corpuscular Hemoglobin 31.8 pg (25.0-35.0); Mean Corpuscular Volume 87 fL (80-100); Monocytes # (Auto) 0.6 Thou/mm3 (0.0-0.8); Monocytes % (Auto) 11 % (0-12); Neutrophils # (Auto) 3.3 Thou/mm3 (1.8-7.7); Neutrophils % (Auto) 56 % (37-80); Nucleated Red Blood Cell # 0.00 Thou/mm3 (0.00-0.00); Nucleated Red Blood Cell % 0 /100 WBC (0); Platelet Count 273 Thou/mm3 (140-440); RDW Standard Deviation 41.6 fL (36.4-46.3); Red Blood Count 4.31 Miln/mm3 (4.00-5.20); White Blood Count 5.8 Thou/mm3 (3.6-11.0)
[2025-05-08 16:26] LABS: Alanine Aminotransferase 25 U/L (10-49); Albumin, Serum 4.3 gm/dL (3.4-4.8); Albumin/Globulin Ratio 1.7 (1.2-2.2); Alkaline Phosphatase 80 U/L (46-116); Anion Gap 10 (7-16); Aspartate Amino Transferase 20 U/L (0-34); BUN/Creatinine Ratio 14 Ratio (12-20); Bilirubin,Total 0.3 mg/dL (0.3-1.2); Blood Urea Nitrogen 10 mg/dL (9-23); Calcium 9.2 mg/dL (8.3-10.6); Calcium (Corrected) 9.2 mg/dL (8.5-10.1); Carbon Dioxide 24.4 mMol/L (20.0-31.0); Chloride 106 mMol/L (98-107); Creatinine (Component) 0.7 mg/dL (0.6-1.3); Globulin 2.5 gm/dL (2.3-3.5); Glucose 201 mg/dL (74-106); Osmolality,Calculated 284 (275-295); Potassium 3.7 mMol/L (3.4-5.1); Sodium 140 mMol/L (136-145); Total Protein 6.8 gm/dL (5.7-8.2); eGFR > 60 See Note
[2025-05-08 16:43] LABS: CA 15-3 2.7 U/mL (<32.4)
[2025-05-24 09:55] LABS: Basophils # (Auto) 0.1 Thou/mm3 (0.0-0.2); Basophils % (Auto) 1 % (0-2.5); Eosinophils # (Auto) 0.3 Thou/mm3 (0.0-0.5); Eosinophils % (Auto) 4 % (0-10); Hematocrit 39.3 % (36.0-46.0); Hemoglobin 14.4 g/dL (12.0-16.0); Immature Granulocytes Auto 0.07 Thou/mm3 (0.00-0.00); Lymphocytes # (Auto) 1.4 Thou/mm3 (1.0-4.8); Lymphocytes % (Auto) 21 % (10-50); Mean Corpuscular HGB Conc 36.6 g/dl (31.0-37.0); Mean Corpuscular Hemoglobin 31.4 pg (25.0-35.0); Mean Corpuscular Volume 86 fL (80-100); Monocytes # (Auto) 0.9 Thou/mm3 (0.0-0.8); Monocytes % (Auto) 13 % (0-12); Neutrophils # (Auto) 4.1 Thou/mm3 (1.8-7.7); Neutrophils % (Auto) 60 % (37-80); Nucleated Red Blood Cell # 0.00 Thou/mm3 (0.00-0.00); Nucleated Red Blood Cell % 0 /100 WBC (0); Platelet Count 242 Thou/mm3 (140-440); RDW Standard Deviation 40.1 fL (36.4-46.3); Red Blood Count 4.59 Miln/mm3 (4.00-5.20); White Blood Count 6.8 Thou/mm3 (3.6-11.0)
[2025-05-24 10:18] LABS: Alanine Aminotransferase 34 U/L (10-49); Albumin, Serum 4.6 gm/dL (3.4-4.8); Albumin/Globulin Ratio 2.1 (1.2-2.2); Alkaline Phosphatase 84 U/L (46-116); Anion Gap 10 (7-16); Aspartate Amino Transferase 25 U/L (0-34); BUN/Creatinine Ratio 17 Ratio (12-20); Bilirubin,Total 0.5 mg/dL (0.3-1.2); Blood Urea Nitrogen 12 mg/dL (9-23); Calcium 10.0 mg/dL (8.3-10.6); Calcium (Corrected) 10.0 mg/dL (8.5-10.1); Carbon Dioxide 25.4 mMol/L (20.0-31.0); Chloride 103 mMol/L (98-107); Creatinine (Component) 0.7 mg/dL (0.6-1.3); Globulin 2.2 gm/dL (2.3-3.5); Glucose 240 mg/dL (74-106); Osmolality,Calculated 283 (275-295); Potassium 4.0 mMol/L (3.4-5.1); Sodium 138 mMol/L (136-145); Total Protein 6.8 gm/dL (5.7-8.2); eGFR > 60 See Note
[2025-05-24 10:21] LABS: Carcinoembryonic Antigen 1.3 ng/mL (0.0-5.0)
--- NOTE | 2025-06-02 20:33 | CTCFLWUP_ITS ---
Patient: GUILLERMO QUEVEDO : 1960 Page 5 of 6 FOLLOW UP NOTE DATE OF SERVICE: 05/27/2025 NAME: GUILLERMO QUEVEDO ACCOUNT: [id number] : 1960 AGE: 64 INTERVAL HISTORY: Subjective: Chief Complaint Follow-up visit for ongoing cancer treatment History of Present Illness Chiara Murphy, a female patient with a history of cancer and diabetes, patient completed her ac anad taxol on 05/09/2025 The patient reports no new symptoms or complications since her last visit. She has been using cold mittens and socks during her chemotherapy treatments as recommended. Notably, she denies experiencing any numbness or tingling in her hands, which is a positive sign in terms of potential chemotherapy-related neuropathy. Her overall health status seems to be stable, with no reported decline in functioning or new health concerns. Medications and Supplements Completed chemotherapy Review of Systems Neurological: Negative for numbness and tingling in hands. Endocrine: Positive for elevated blood glucose. Objective: Laboratory, Imaging, and Diagnostic Test Results - Natura test: Negative (86-87% chance of being cancer-free) - Blood work: - Blood glucose: Mildly elevated ONCOLOGY HISTORY: DIAGNOSIS: Malignant neoplasm of upper-outer quadrant of left female breast [ICD10] C50.412 DATE OF DIAGNOSIS: 06/26/2024 STAGE/TNM: Stage III T2 N2a MX ER/[place] positive HER2 negative TREATMENT HISTORY: Care?Plan Start?Date Cycle Day Intent AC?4?cy?DD?Taxol?wkly?12?wks 12/17/2024 2 7 Curative?(adjuvant) HISTORY OF PRESENT ILLNESS: 64-year-old female with a new diagnosis of breast cancer. Patient has hypertension diabetes. Patient denies any complaints. Patient is here to establish care. Patient already had her mastectomy done in September. OTHER MEDICAL HISTORY/CONDITIONS: Infiltrating ductal carcinoma left breast - dx 06/26/24 HTN Diabetes PC placement - mid November 2024 Left modified radical mastectomy with lymph node dissection - 09/28/24 x 2 - 1996; 2004 FAMILY HISTORY: Patient?denies?family?cancer?history. 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 Advil - As directed 2. Arimidex - 1 mg 1 tab Daily 3. Compazine - 5 mg 5 mg Daily 4. Januvia - 100 mg 1 tab Daily 5. Jardiance - 25 mg 1 tab Daily 6. lisinopril - 5 mg 1 tab Daily 7. metFORMIN - 1,000 mg 1 tab Twice a Day 8. ondansetron HCl - 8 mg 8 mg Daily Medications Last Reconciled by Juju Lemosn MA on 05/27/2025 ALLERGIES: No Known Allergies REVIEW OF SYSTEMS: A complete 14-point review of systems was performed and is negative except as noted in interval history. PHYSICAL EXAMINATION: VITAL SIGNS: Temperature?98.6, B/P?139/80, Oxygen?Saturation?94% PAIN: 0 - No pain ECOG Performance Status: 0 - Asymptomatic and fully active GENERAL APPEARANCE: Appears well, in no apparent distress, appropriately interactive. HEENT: Normocephalic, no temporal wasting, normal conjunctiva, no scleral icterus, normal hearing, lips without lesions, neck normal range of motion. CARDIOVASCULAR: Not assessed. PULMONARY: Normal respiratory effort, no respiratory distress or use of accessory muscles, speaking in full sentences, no tachypnea. EXTREMITIES: No pedal edema or cyanosis. SKIN: Normal skin appearance. NEUROLOGIC: Alert and oriented x4. PSHYCHIATRIC: Appropriate affect, mood normal, behavior normal, intact thought and speech. LABORATORY DATA: I have personally reviewed and interpreted each of the patient?s relevant lab tests, abnormal findings are below: Date 05/08/25 05/24/25 ??WHITE?BLOOD?COUNT?(Thou/mm3) ? 6.8 ??RED?BLOOD?COUNT?(Miln/mm3) ? 4.59 ??HEMOGLOBIN?(gm/dl) ? 14.4 ??HEMATOCRIT?(%) ? 39.3 ??PLATELET?COUNT?(Thou/mm3) ? 242 ??NEUTROPHILS?%,?AUTO?(%) ? 60 ??LYMPH?%,?AUTO?(%) ? 21 ??NEUTROPHILS,?AUTO?(Thou/mm3) ? 4.1 ??GLUCOSE,RANDOM?(mg/dL) 201?H 240?H ??BLOOD?UREA?NITROGEN?(mg/dL) 10 12 ??CREATININE?(mg/dL) 0.70 0.70 ??SODIUM?(mmol/L) 140 138 ??POTASSIUM?(mmol/L) 3.7 4.0 ??CHLORIDE?(mmol/L) 106 103 ??CrCl?(CandG)?(ml/min) 71.02 71.71 ??AST/SGOT?(Unit/L) 20 25 ??ALT/SGPT?(Unit/L) 25 34 ??ALKALINE?PHOSPHATASE?(Unit/L) 80 84 ??BILIRUBIN,?TOTAL?(mg/dL) 0.3 0.5 ??PROTEIN?TOTAL?(gm/dl) 6.8 6.8 ??ALBUMIN,?SERUM?(gm/dl) 4.3 4.6 ??GLOBULIN?(gm/dl) 2.5 2.2?L ??ALBUMIN/GLOBULIN?RATIO 1.7 2.1 ??CALCIUM,?SERUM?(mg/dL) 9.2 10.0 ??CALCIUM?SERUM?(CORRECTED)?(mg/dL) 9.2 10.0 ??CEA?(O*)?(ng/ml) ? 1.3 ASSESSMENT/PLAN: Stage III left breast cancer s/p mastectomy Patient have advanced breast cancer. 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 Recent blood work shows mildly elevated blood glucose levels, indicating suboptimal glycemic control. Plan: - Dietary modifications recommended: - Reduce intake of rice and tortillas - Spread meals over 2-3 hours, eating slowly - Monitor blood glucose levels ORDERS: Order # Description [id number] Comprehensive Metabolic Panel - 12 + CBC with Auto Diff + MD Follow Up 3 Months RETURN TO CLINIC: I reviewed the diagnosis, prognosis, and recommended treatment/procedure options with the patient (and/or their legal billing representative), including the potential benefits, risks, side effects and alternative therapies. We also discussed the option of no treatment and the possibility of clinical trial participation, if applicable. All questions were addressed, and they demonstrated understanding. They provided informed consent to proceed with the proposed plan of care. BILLING AND COMPLIANCE: I reviewed external records from providers outside my specialty as summarized above. I spent a total of 50 minutes on this patient?s care on the day of their visit excluding time spent related to any billed procedures. This time includes time spent with the patient as well as time spent documenting in the medical record, reviewing patients records and tests, obtaining history, placing orders, communicating with other healthcare professionals, counseling the patient, family or caregiver, and/or care coordination for the diagnoses above. Electronically Signed by: {Object.Sanct_ID*PnP.NameFL@M}, {Object.Sanct_ID*PnP.Suffix@U} D: {Object.Sanct_Date} T: {Object.Sanct_Time} CC: PCP: Gareth Saini Referring: Brent Saini This document was completed utilizing speech recognition software. Grammatical errors, random word insertions, pronoun errors, and incomplete sentences are an occasional consequence of this system due to software limitations, ambient noise, and hardware issues. Any formal questions or concerns about the content, text or information contained within the body of this dictation should be directly addressed to the provider for clarification.
== END 2025-06-06 23:59 | disposition home or self-care (01) ==
LOC: SCTC 08:00
PROVIDERS: Internal Medicine Hematology & Oncology; PCP Family Medicine; Visit Provider Radiology Therapeutic Radiology
DX: Z51.11 Encounter for antineoplastic chemotherapy (principal); Z51.0 Encounter for antineoplastic radiation therapy; C50.812 Malignant neoplasm of overlapping sites of left female breast; Z17.0 Estrogen receptor positive status [ER+]; Z17.21 Progesterone receptor positive status; Z17.32 Human epidermal growth factor receptor 2 negative status; Z90.12 Acquired absence of left breast and nipple; E11.65 Type 2 diabetes mellitus with hyperglycemia; Z79.84 Long term (current) use of oral hypoglycemic drugs
CPT/HCPCS: 36591; 77014; 77280; 77290; 77295; 77300; 77334; 77412; 80053; 82378; 85025; 86300; 96367; 96375; 96413; 99213; A4216; J1100; J1200; J1453; J1642; J2405; J3490; J7050; J9267; G0463

== ENCOUNTER 2025-06-27 08:04 | Outpatient (RCR) | payer BC, MEDICARE, MEDICAID, SELFPAY | END 2025-07-07 23:59 | disposition home or self-care (01) | LOC: SCTC 08:04 | PROVIDERS: Visit Provider Internal Medicine Hematology & Oncology | DX: Z51.0 Encounter for antineoplastic radiation therapy (principal); C50.812 Malignant neoplasm of overlapping sites of left female breast; Z17.0 Estrogen receptor positive status [ER+]; Z17.21 Progesterone receptor positive status; Z17.32 Human epidermal growth factor receptor 2 negative status; Z90.12 Acquired absence of left breast and nipple; L59.8 Other specified disorders of the skin and subcutaneous tissue related to radiation; Y84.2 Radiological procedure and radiotherapy as the cause of abnormal reaction of the patient, or of later complication, without mention of misadventure at the time of the procedure | CPT/HCPCS: 77336; 77412; 77417 ==

== ENCOUNTER → 2025-07-23 | Outpatient (CLI) | payer MEDICAID, SELFPAY ==
--- NOTE | 2025-07-23 08:30 | XR_ITS ---
Examination: Screening digital mammography, unilateral right Computer aided detection 3-D breast Tomosynthesis, unilateral Date and time of exam: July 23, 2025 0809 hours compared to mammograms dating to January 16, 2016 Indication: Screening Technique: Nonmagnified MLO, CC views of the right breast to been obtained, reconstructed from 3-D Tomosynthesis images. R2 computer aided detection program utilized for evaluation of suspicious masses and/or abnormal calcifications. 3-D Tomosynthesis images obtained. Findings: The breast is heterogeneously dense, which may obscure small masses 8mm nodule upper outer right breast mid depth Impression: BI-RADS Category 0: Incomplete: Need additional imaging evaluation Recommend follow-up spot tomographic views of 8mm nodule indistinct margins upper outer right breast as well as right breast sonography to complete the workup
== END | disposition home or self-care (01) ==
PROVIDERS: Referring Provider Surgery; Visit Provider Surgery
DX: Z12.31 Encounter for screening mammogram for malignant neoplasm of breast (principal); N63.11 Unspecified lump in the right breast, upper outer quadrant
CPT/HCPCS: 77063; 77067

== ENCOUNTER 2025-07-31 07:46 | Outpatient (RCR) | payer MEDICARE, MEDICAID, SELFPAY ==
--- NOTE | 2025-07-09 11:00 | CTCTRTNOTE_ITS ---
[facility] [address] [place], [place] [address] Weekly Management Date: 07/09/2025 ?? Name: GUILLERMO QUEVEDO : 1960 A. Patient is currently at 3600 cGy. B. Patient is well-healed from the rest. C. Resume radiation therapy. With bolus removed. Electronically signed by: Benjy Ponce M.D. 07/09/2025 10:58 AM
--- NOTE | 2025-07-15 08:33 | CTCTRTNOTE_ITS ---
[facility] [address] [place], [place] [address] Weekly Management Date: 07/15/2025 ?? Name: GUILLERMO QUEVEDO : 1960 A. Patient is currently at 4320 cGy. B. Patient is tolerating treatment well. C. Patient is having the following side effects: Moderate skin effect no desquamation of skin. D. Will do EBoost later this week.. E. Resume radiation therapy. Electronically signed by: Benjy Ponce M.D. 07/15/2025 8:31 AM
== END 2025-08-06 23:59 | disposition home or self-care (01) ==
LOC: SCTC 07:46
PROVIDERS: Visit Provider Internal Medicine Hematology & Oncology
DX: Z51.0 Encounter for antineoplastic radiation therapy (principal); C50.812 Malignant neoplasm of overlapping sites of left female breast; Z17.0 Estrogen receptor positive status [ER+]; Z17.21 Progesterone receptor positive status; Z90.12 Acquired absence of left breast and nipple; Z17.32 Human epidermal growth factor receptor 2 negative status; Z92.21 Personal history of antineoplastic chemotherapy; E11.9 Type 2 diabetes mellitus without complications; Z79.84 Long term (current) use of oral hypoglycemic drugs; L59.8 Other specified disorders of the skin and subcutaneous tissue related to radiation; Y84.2 Radiological procedure and radiotherapy as the cause of abnormal reaction of the patient, or of later complication, without mention of misadventure at the time of the procedure
CPT/HCPCS: 77290; 77300; 77332; 77336; 77412; 77417; 99213; J0131; J0690; J2250; J2704; J3010; J3490; G0463

== ENCOUNTER → 2025-08-19 | Outpatient (CLI) | payer SELFPAY ==
--- NOTE | 2025-08-19 11:00 | XR_ITS ---
Examination: Breast ultrasound, unilateral, right complete Date and time of exam: August 19, 2025, 11:20 a.m. INDICATIONS: Mammogram 07/23/2025 8 mm nodule upper outer right breast, history left breast cancer mastectomy 2023 Technique: Real-time boston scale ultrasonographic imaging performed right breast including all 4 quadrants as well as nipple retroareolar and axillary region. Findings: No cystic or solid mass IMPRESSION: BI-RADS Category 1: Negative study
--- NOTE | 2025-08-19 11:30 | XR_ITS ---
Examination: Diagnostic digital mammography, unilateral, right Computer aided detection 3-D breast Tomosynthesis, unilateral Date and time of exam: 08/19/2025, 11:37 a.m. Comparisons: January 2016 through July 2025 Indications: Abnormality seen on prior screening exam. Technique: Nonmagnified MLO, CC views of the right breast have been obtained, reconstructed from 3-D Tomosynthesis images. R2 computer aided detection program utilized for evaluation of suspicious masses and/or abnormal calcifications. 3-D Tomosynthesis images obtained. Technologist: Findings: The breasts are heterogeneously dense, which may obscure small masses. No evidence of abnormal masses or suspicious calcifications. The previously described abnormality does not persist on spot compression views and represents superposition of normal fibroglandular tissue. Impression: BI-RADS category 1: Negative findings (within normal) Recommend 1 year follow-up mammogram
== END | disposition home or self-care (01) ==
PROVIDERS: Referring Provider Surgery; Visit Provider Surgery
DX: R92.313 Mammographic fatty tissue density, bilateral breasts (principal); Z85.3 Personal history of malignant neoplasm of breast
CPT/HCPCS: 76641; 77061; 77065; G0279

== ENCOUNTER 2025-08-27 09:42 | Outpatient (RCR) | payer MEDICARE, MEDICAID, SELFPAY ==
--- NOTE | 2025-08-27 11:02 | CTCFLWUP_ITS ---
[facility] [address] [place], [place] [address] FOLLOW-UP NOTE Date: 08/27/2025 MR#: [id number] Name: GUILLERMO QUEVEDO : 1960 Dx: C50.412 Malignant neoplasm of upper-outer quadrant of left female breast Identification. Patient underwent modified left radical mastectomy for stage IIIA [id number] left breast CA performed by Dr. Baker 09/28/2024. Receptor positive HER2 negative. After completing chemo patient had radiation therapy to the left chest wall supra clavicle jan sites 4500 to 5000 cGy plus E boost to chest scar completed 07/31/2025. Presents here today patient appears comfortable with skin reaction recovering satisfactorily. Patient is regaining her energy. Being followed regularly by Dr. Bush medical oncologist. who will see her again in October. Patient is currently on Arimidex for her receptor positive breast cancer. I will see her as needed in the future. Electronically signed by: Benjy Ponce M.D. 08/27/2025 11:00 AM
== END 2025-09-06 23:59 | disposition home or self-care (01) ==
LOC: SCTC 09:42
PROVIDERS: PCP Nurse Practitioner; Referring Provider Nurse Practitioner; Visit Provider Internal Medicine Hematology & Oncology
DX: C50.812 Malignant neoplasm of overlapping sites of left female breast (principal); Z17.0 Estrogen receptor positive status [ER+]; Z17.21 Progesterone receptor positive status; Z17.32 Human epidermal growth factor receptor 2 negative status; Z92.3 Personal history of irradiation; Z79.811 Long term (current) use of aromatase inhibitors
CPT/HCPCS: 99212; G0463

== ENCOUNTER 2025-10-25 10:44 | Outpatient (RCR) | payer MEDICARE, MEDICAID, SELFPAY ==
--- NOTE | 2025-10-14 13:10 | CTCFLWUP_ITS ---
Patient: GUILLERMO QUEVEDO : 1960 Page 5 of 6 FOLLOW UP NOTE DATE OF SERVICE: 10/11/2025 NAME: GUILLERMO QUEVEDO ACCOUNT: [id number] : 1960 AGE: 65 INTERVAL HISTORY: Summary -patient had lumpectomy of the left breast on 09/28/2024 and completed chemotherapy. Patient also had radiation done 5000 Gy to the chest scar and completed on 07/31/2025. Patient has been on anastrozole. Discussed with patient and added ribociclib. Patient will be on anastrozole and ribociclib for next 3 years. EKG echocardiogram ordered. Initially patient will be monitored with CBC CMP every 2 weeks and patient is to call the niece when she received the new medicine . Laboratory, Imaging, and Diagnostic Test Results - Natura test: Negative (86-87% chance of being cancer-free) - Blood work: - Blood glucose: Mildly elevated ONCOLOGY HISTORY: DIAGNOSIS: Malignant neoplasm of upper-outer quadrant of left female breast [ICD10] C50.412 DATE OF DIAGNOSIS: 06/26/2024 STAGE/TNM: Stage III T2 N2a MX ER/CO positive HER2 negative TREATMENT HISTORY: Care?Plan Start?Date Cycle Day Intent AC?4?cy?DD?Taxol?wkly?12?wks 12/17/2024 2 7 Curative?(adjuvant) HISTORY OF PRESENT ILLNESS: 65-year-old female with a new diagnosis of breast cancer. Patient has hypertension diabetes. Patient denies any complaints. Patient is here to establish care. Patient already had her mastectomy done in September. OTHER MEDICAL HISTORY/CONDITIONS: Infiltrating ductal carcinoma left breast - dx 06/26/24 HTN Diabetes PC placement - mid November 2024 Left modified radical mastectomy with lymph node dissection - 09/28/24 x 2 - 1996; 2004 FAMILY HISTORY: Patient?denies?family?cancer?history. 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 Advil - As directed 2. Arimidex - 1 mg 1 tab Daily 3. calcium carbonate-vitamin D3 - 600 mg-20 mcg (800 unit) 1 tab 1 tab twice Daily 4. Compazine - 5 mg 5 mg Daily 5. Januvia - 100 mg 1 tab Daily 6. Jardiance - 25 mg 1 tab Daily 7. lisinopril - 5 mg 1 tab Daily 8. metFORMIN - 1,000 mg 1 tab Twice a Day 9. ondansetron HCl - 8 mg 8 mg Daily 10. ribociclib - 400 mg/day (200 mg x 2) 2 tab Daily 11. SSD - Twice a Day Medications Last Reconciled by Marguerite Barclay RN on 07/09/2025 (Reconcile on Approval: ?) ALLERGIES: No Known Allergies REVIEW OF SYSTEMS: A complete 14-point review of systems was performed and is negative except as noted in interval history. PHYSICAL EXAMINATION: VITAL SIGNS: PAIN: None ECOG Performance Status: None GENERAL APPEARANCE: Appears well, in no apparent distress, appropriately interactive. HEENT: Normocephalic, no temporal wasting, normal conjunctiva, no scleral icterus, normal hearing, lips without lesions, neck normal range of motion. CARDIOVASCULAR: Not assessed. PULMONARY: Normal respiratory effort, no respiratory distress or use of accessory muscles, speaking in full sentences, no tachypnea. EXTREMITIES: No pedal edema or cyanosis. SKIN: Normal skin appearance. NEUROLOGIC: Alert and oriented x4. PSHYCHIATRIC: Appropriate affect, mood normal, behavior normal, intact thought and speech. LABORATORY DATA: I have personally reviewed and interpreted each of the patient?s relevant lab tests, abnormal findings are below: Date 05/08/25 05/24/25 ??WHITE?BLOOD?COUNT?(Thou/mm3) ? 6.8 ??RED?BLOOD?COUNT?(Miln/mm3) ? 4.59 ??HEMOGLOBIN?(gm/dl) ? 14.4 ??HEMATOCRIT?(%) ? 39.3 ??PLATELET?COUNT?(Thou/mm3) ? 242 ??NEUTROPHILS?%,?AUTO?(%) ? 60 ??LYMPH?%,?AUTO?(%) ? 21 ??NEUTROPHILS,?AUTO?(Thou/mm3) ? 4.1 ??GLUCOSE,RANDOM?(mg/dL) 201?H 240?H ??BLOOD?UREA?NITROGEN?(mg/dL) 10 12 ??CREATININE?(mg/dL) 0.70 0.70 ??SODIUM?(mmol/L) 140 138 ??POTASSIUM?(mmol/L) 3.7 4.0 ??CHLORIDE?(mmol/L) 106 103 ??CrCl?(CandG)?(ml/min) 71.02 71.71 ??AST/SGOT?(Unit/L) 20 25 ??ALT/SGPT?(Unit/L) 25 34 ??ALKALINE?PHOSPHATASE?(Unit/L) 80 84 ??BILIRUBIN,?TOTAL?(mg/dL) 0.3 0.5 ??PROTEIN?TOTAL?(gm/dl) 6.8 6.8 ??ALBUMIN,?SERUM?(gm/dl) 4.3 4.6 ??GLOBULIN?(gm/dl) 2.5 2.2?L ??ALBUMIN/GLOBULIN?RATIO 1.7 2.1 ??CALCIUM,?SERUM?(mg/dL) 9.2 10.0 ??CALCIUM?SERUM?(CORRECTED)?(mg/dL) 9.2 10.0 ??CEA?(O*)?(ng/ml) ? 1.3 ASSESSMENT/PLAN: Stage III left breast cancer s/p mastectomy Patient have advanced breast cancer. 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 Recent blood work shows mildly elevated blood glucose levels, indicating suboptimal glycemic control. Plan: - Dietary modifications recommended: - Reduce intake of rice and tortillas - Spread meals over 2-3 hours, eating slowly - Monitor blood glucose levels ORDERS: Order # Description [id number] + Uric Acid, Serum + MD Follow Up 2 Months [id number] Lactate Dehydrogenase (LDH) + Assay Of Haptoglobin Quant + Iron Panel + Ferritin + Vitamin B-12 + Folic Acid; Serum [id number] Cardiac ECHO [id number] DXA L-Spine and Hip RETURN TO CLINIC: I reviewed the diagnosis, prognosis, and recommended treatment/procedure options with the patient (and/or their legal benefits representative), including the potential benefits, risks, side effects and alternative therapies. We also discussed the option of no treatment and the possibility of clinical trial participation, if applicable. All questions were addressed, and they demonstrated understanding. They provided informed consent to proceed with the proposed plan of care. BILLING AND COMPLIANCE: I reviewed external records from providers outside my specialty as summarized above. I spent a total of 50 minutes on this patient?s care on the day of their visit excluding time spent related to any billed procedures. This time includes time spent with the patient as well as time spent documenting in the medical record, reviewing patients records and tests, obtaining history, placing orders, communicating with other healthcare professionals, counseling the patient, family or caregiver, and/or care coordination for the diagnoses above. Electronically Signed by: {Object.Sanct_ID*PnP.NameFL@M}, {Object.Sanct_ID*PnP.Suffix@U} D: {Object.Sanct_Date} T: {Object.Sanct_Time} CC: PCP: Jerzy Marshall Referring: Jerzy Marshall This document was completed utilizing speech recognition software. Grammatical errors, random word insertions, pronoun errors, and incomplete sentences are an occasional consequence of this system due to software limitations, ambient noise, and hardware issues. Any formal questions or concerns about the content, text or information contained within the body of this dictation should be directly addressed to the provider for clarification.
[2025-10-25 11:26] LABS: Basophils # (Auto) 0.0 Thou/mm3 (0.0-0.2); Basophils % (Auto) 1 % (0-2.5); Eosinophils # (Auto) 0.2 Thou/mm3 (0.0-0.5); Eosinophils % (Auto) 3 % (0-10); Hematocrit 39.2 % (36.0-46.0); Hemoglobin 14.0 g/dL (12.0-16.0); Immature Granulocytes Auto 0.04 Thou/mm3 (0.00-0.00); Lymphocytes # (Auto) 1.3 Thou/mm3 (1.0-4.8); Lymphocytes % (Auto) 23 % (10-50); Mean Corpuscular HGB Conc 35.7 g/dl (31.0-37.0); Mean Corpuscular Hemoglobin 29.9 pg (25.0-35.0); Mean Corpuscular Volume 84 fL (80-100); Monocytes # (Auto) 0.6 Thou/mm3 (0.0-0.8); Monocytes % (Auto) 11 % (0-12); Neutrophils # (Auto) 3.6 Thou/mm3 (1.8-7.7); Neutrophils % (Auto) 62 % (37-80); Nucleated Red Blood Cell # 0.00 Thou/mm3 (0.00-0.00); Nucleated Red Blood Cell % 0 /100 WBC (0); Platelet Count 266 Thou/mm3 (140-440); RDW Standard Deviation 39.0 fL (36.4-46.3); Red Blood Count 4.69 Miln/mm3 (4.00-5.20); White Blood Count 5.8 Thou/mm3 (3.6-11.0)
[2025-10-25 12:04] LABS: Alanine Aminotransferase 47 U/L (10-49); Albumin, Serum 4.4 gm/dL (3.4-4.8); Albumin/Globulin Ratio 1.5 (1.2-2.2); Alkaline Phosphatase 82 U/L (46-116); Anion Gap 10 (7-16); Aspartate Amino Transferase 32 U/L (0-34); BUN/Creatinine Ratio 11 Ratio (12-20); Bilirubin,Total 0.5 mg/dL (0.3-1.2); Blood Urea Nitrogen 9 mg/dL (9-23); Calcium 9.5 mg/dL (8.3-10.6); Calcium (Corrected) 9.5 mg/dL (8.5-10.1); Carbon Dioxide 25.1 mMol/L (20.0-31.0); Chloride 104 mMol/L (98-107); Creatinine (Component) 0.8 mg/dL (0.6-1.3); Globulin 3.0 gm/dL (2.3-3.5); Glucose 211 mg/dL (74-106); Osmolality,Calculated 282 (275-295); Potassium 3.8 mMol/L (3.4-5.1); Sodium 139 mMol/L (136-145); Total Protein 7.4 gm/dL (5.7-8.2); eGFR > 60 See Note
== END 2025-11-06 23:59 | disposition home or self-care (01) ==
LOC: SCTC 10:44
PROVIDERS: PCP Nurse Practitioner; Referring Provider Nurse Practitioner; Visit Provider Internal Medicine Hematology & Oncology
DX: C50.412 Malignant neoplasm of upper-outer quadrant of left female breast (principal); Z17.0 Estrogen receptor positive status [ER+]; Z17.21 Progesterone receptor positive status; Z17.32 Human epidermal growth factor receptor 2 negative status; Z90.12 Acquired absence of left breast and nipple; Z79.811 Long term (current) use of aromatase inhibitors
CPT/HCPCS: 36591; 80053; 85025

== ENCOUNTER → 2025-10-25 | Outpatient (CLI) | payer MEDICARE, MEDICAID, SELFPAY ==
--- NOTE | 2025-10-25 12:01 | EKG_ITS ---
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
== END | disposition home or self-care (01) ==
PROVIDERS: PCP Family Medicine; Referring Provider Internal Medicine Hematology & Oncology; Visit Provider Internal Medicine Hematology & Oncology
DX: C50.412 Malignant neoplasm of upper-outer quadrant of left female breast (principal)
CPT/HCPCS: 93005